=== PATIENT | male | born 1960 | race Caucasian/White ===

== ENCOUNTER 2017-02-21 08:57 | Day surgery (SDC) | payer MEDICARE ==
[~2017-02-21] VITALS: Ht 188 cm; Wt 93.0 kg
[~2017-02-21 08:57] MED LIST: AMLO10TA3 PO; ASPI-973 PO; ATEN25TA PO; ATOR20TA PO; BUPR1TAB36 SL; GLBR5T PO; HYDR4TAB PO; LISI40TA PO; Lactated Ringer's 1,000 ML IV ONE; METF-496 PO; PANT40TA3 PO; PROM25TA14 PO; TEST200V20 IM
[2017-02-21] MEDS ORDERED: Propofol 10,000 mCg/mL 20 mL Inj ONE (08:58)
[2017-02-21 09:33] VITALS: BP 141/88; PULSE 82; RESP 16; O2SAT 98
[2017-02-21] MEDS ORDERED: Lactated Ringer's 1,000 ML IV SCH (10:02)
[2017-02-21] MEDS ORDERED: Ondansetron 2 mg/mL 2 mL Inj IVPUSH PRN (10:05)
[2017-02-21] MEDS ORDERED: MetoCLOpramide 5 mg/mL 2 mL Inj IVPUSH PRN (10:05)
--- NOTE | 2017-02-21 10:06 | PCM.HPANE ---
Patient Data Date of Service: Feb 21, 2017 Surgeon Admitting Provider: Attending Provider:Francisco Stark MD Primary Care Physician:Adwoa Mathis Other Provider:Rossana Durham Anesthesia Reason for Visit GERD Ht/WT & BMI Height (Feet): 6 Height (Inches): 2 Weight (Kilograms): 93 Body Mass Index 26.00 Allergies Coded Allergies: colestipol (Verified Adverse Reaction, Mild, upset stomach, 02/21/17) Past Anesthesia History Anesthesia History: Denies:: Anesthesia Reactions, Fam Anesthesia Reaction, Fam Malignant Hypertherm, Malignant Hyperthermia Diabetes History Hx Diabetes?: Yes Type of Diabetes: Type II Glycemic Control: Oral Medication Current Bedside Blood Glucose: 146 MRSA MRSA: No Medications Blood Thinner: Aspirin Hypertension Medication: Yes Home Meds Incl Beta Gisele: Yes Date Beta Gisele Taken: Feb 20, 2017 Time Beta Gisele Taken: 0800 Reported Medications Testosterone Cypionate 200 Mg/1 Ml Vsts001 Mg IM 02/20/17 Promethazine 25 Mg Uyrmxp18 Mg PO Q6H PRN For Nausea Ref 0 02/20/[address] 40 Mg Tablet.dr40 Mg PO DAILY Ref 0 02/20/17 Metformin ER 1,000 Mg Tablet1,000 Mg PO DAILY Ref 0 02/20/17 Lisinopril 40 Mg Fxeffn36 Mg PO DAILY 30 Days Ref 0 02/20/17 Hydromorphone 4 Mg Tablet4 Mg PO Q4H PRN Pain Ref 0 02/20/17 Glyburide 5 Mg Tab5 Mg PO BIDAC 30 Days Ref 0 02/20/17 Buprenorphine/Naloxone 8-2 mg 1 Each Tab.subl1 Tablet SL DAILY Ref 0 02/20/17 Atorvastatin (Lipitor)20 Mg Srpoaj91 Mg PO DAILY Ref 0 02/20/17 Atenolol 25 Mg Ynhlul78 Mg PO DAILY #30 TABLET Ref 0 02/20/17 Aspirin 81 Mg Bgnuhf93 Mg PO DAILY Ref 0 02/20/17 Amlodipine 10 Mg Xsftes70 Mg PO DAILY Ref 0 02/20/17 History History of ENT Problems?: No HEENT History: Denies:: Abnormal Airway Cataracts Difficult Intubation Dysphagia Glaucoma Hearing Problem Sinus Problem TMJ Denture Type: None Teeth Condition: Within Normal Limits Hx of Heart Problems?: Yes Cardiovascular History: Positive for:: Hypertension Denies:: AICD Pacemaker Valvular Heart Disease Hx of Respiratory Problem?: No Respiratory History: Denies:: Asthma COPD Chest Surgery Cough Dyspnea Emphysema Hemoptysis Oxygen Administration Pneumonia Pulmonary Embolism Tuberculosis Use of C-PAP Machine Use of Inhalers / NEBS Hx Neurologic Problems?: No Neurological History: Denies:: CVA Hx of GI Problems?: No Hx of Problems?: No Hx Musculoskeletal Problems?: No Hx of Psycho/Social Problems?: No Hx Surgeries?: Yes (lower back, mid back- spinal stimulators placed, ) Hx Diabetes: YesBedside Blood Glucose: 146 Hx Alcohol Use: No Smoking Status: Current Every Day Smoker Light Tobacco Smoker Have You Smoked inLast 12 mo: Yes Stop/Bang Treated for Sleep Apnea?: No Do You Have a CPAP Machine?: No S-Snoring: Do You Snore Loudly: Yes T-Tired: feel tired, fatigued: Yes O-Obsered: Observed not breath: Yes P-Blood Pressure: treated: Yes B- Body Mass Index > 35 kg/m2: Yes A- Age over 50: Yes N- Neck Large Circumference: No G- Gender Male: Yes CESAR Total Score: 7 CESAR Risk Assessment: High Risk, =/>3 Yes CESAR Category 2: Yes Risk Assessment Category Category 1A: Patient has history of documented sleep apnea, and HAS NOT received any narcotic, sedative or anesthesia administration during this stay. Category 1B: Patient has history of documented sleep apnea, and HAS received any narcotic , sedative or anesthesia administration during this stay Category 2: Patient has SUSPECTED Obstructive Sleep Apnea, and HAS received any narcotic , sedative or anesthesia administration during this stay. Category 3: Patient has SUSPECTED Obstructive Sleep Apnea and HAS NOT received narcotic, sedative or anesthesia administration during this stay. Category 4: Outpatient in Procedural Areas with known sleep apnea or who screen positive for High Risk via the STOP/BANG questionnaire. Exam Exam Vital Signs Vital Signs Date Time Temp Pulse Resp B/P Pulse Ox O2 Delivery O2 Flow Rate FiO2 02/21/17 09:33 36.8 82 16 141/88 98 Room Air General Appearance: Alert, Oriented X3, Cooperative, No Acute Distress HEENT/AIRWAY: MP 2 Lungs: Clear to Auscultation Heart: Exam Unremarkable, Regular Rate/Rhythm, Normal S1, Normal S2, No Murmurs /Rubs/Gallops Meds/Labs/Diagnostics Admission Meds Current Medications Lactated Ringer's (Lr) 1,000 ml @ 10 mls/hr Q24H ONCE IV Last administered on 02/21/17t 09:47; Start 02/21/17 at 06:00; Stop 02/22/17 at 05:59 Bedside Blood Glucose: 146 Plan Impression Patient chart reviewed, patient interviewed and anesthestic plan with risks, benefits, and alternatives discussed, and informed consent obtained. ASA Physical Status: ASA2 Mod Systemic Disease Anesthetic Plan: GA, TIVA Bene/Risks/Altern/Consents: Yes HP Complete Prior to Induction: Yes Helder Hamilton MD Feb 21, 2017 10:06
[2017-02-21 10:33] VITALS: BP 125/82; PULSE 71; RESP 14; O2SAT 96
[2017-02-21 10:43] VITALS: BP 126/82; PULSE 80; RESP 16; O2SAT 98
[2017-02-21 10:49] VITALS: BP 148/88; PULSE 73; RESP 14; O2SAT 98
--- NOTE | 2017-02-21 10:56 | ENDO ---
[address] [address] ENDOSCOPY PROCEDURE PATIENT: JIL CARLSON : 1960 MR#: [id number] ADMIT: 02/21/2017 JOB ID: [id number] DATE OF SERVICE: 02/21/2017 PROCEDURE PERFORMED: Esophagogastroduodenoscopy. INDICATION: Patient with a history of chronic gastroesophageal reflux. ASA CLASSIFICATION, MALLAMPATI SCORE AND MEDICATIONS: The patient's ASA classification, Mallampati score and medications are as per Anesthesia note. INSTRUMENT USED: [id number]. PROCEDURE DETAILS: After informed consent was obtained, the patient was brought into the GI suite, where he was placed on oxygen via nasal cannula and monitored with continuous pulse oximeter, telemetry, and blood pressure monitoring. A time-out was performed. Then, he was placed in the left lateral decubitus position, and medications were administered for sedation. A bite block was placed. A standard EGD scope was inserted through the bite block and advanced under direct visualization to the second portion of the duodenum without difficulty. FINDINGS: 1. Normal appearing duodenal bulb, first and second portions. 2. Normal appearing pylorus. 3. Normal appearing antrum. 4. In the body of the stomach there were multiple polyps ranging in size from 5 mm to 7 mm. Polyp appearance was consistent with fundic gland polyps. The largest polyp was biopsied. 5. Retroflexed views in the gastric body revealed normal appearing cardia and fundus. There were a few polyps noted in the fundus as well, and appearance was also consistent with fundic gland polyps. 6. The GE junction was at 39 cm and appeared regular. Just above the GE junction, there was a small island of salmon-colored mucosa. Biopsy was obtained. 7. Remainder of the esophagus otherwise unremarkable. IMPRESSION: 1. Multiple gastric body polyps, appearance consistent with fundic gland polyps. 2. Island of salmon-colored mucosa above the gastroesophageal junction. RECOMMENDATIONS: 1. Await biopsy results. 2. Follow up in GI clinic. 3. Continue current medications. 4. Colonoscopy for colon cancer screening was recommended. COMPLICATIONS: None. ESTIMATED BLOOD LOSS: Less than 5 mL.
--- NOTE | 2017-02-21 11:20 | PCM.ANEP1 ---
Post Anesthesia Phase 1 PACU Phase 1 Assessment Date of Service: Feb 21, 2017 Vital Signs Vital Signs Date Time Temp Pulse Resp B/P Pulse Ox O2 Delivery O2 Flow Rate FiO2 02/21/17 10:49 73 14 148/88 98 Room Air 02/21/17 10:43 80 16 126/82 98 Room Air 02/21/17 10:33 36.8 71 14 125/82 96 Room Air 02/21/17 09:33 36.8 82 16 141/88 98 Room Air Anesthetic Administered: GA, TIVA Level of Alertness: Awake, talking MATHEWS's with Equal Strength: Yes Pain: No Nausea or Vomiting: No Cardiovascular Function and Hy: Yes Oxygen Delivery: Room Air Lungs: Clear to Auscultation Dermatome Level: Full Sensation Complications: No Follow up Care: No Helder Hamilton MD Feb 21, 2017 11:20
--- NOTE | 2017-02-22 14:06 | PATH ---
SURGICAL PATHOLOGY Attending Physician:Mary Ann Walters CASE STATUS: Signed Out PATIENT NAME: JIL CARLSON PID: [id number] : 1960 DATE COLLECTED:02/21/2017 16:29 SPECIMEN: 1: Stomach, Polyp, Biopsy 2: Esophagus, Biopsy CLINICAL HISTORY: 1. GASTRIC BODY POLYP 2. DISTAL ESOPHAGUS FINAL DIAGNOSIS: 1.GASTRIC BODY POLYP: FUNDIC GLAND POLYP, NEGATIVE FOR ATYPIA. Negative for evidence of Helicobacter. Negative for intestinal metaplasia. 2. DISTAL ESOPHAGUS BIOPSY: SQUAMOUS MUCOSA AND GASTRIC CARDIA-TYPE MUCOSA POSITIVE FOR SPECIALIZED METAPLASIA OF PARSONS' S-TYPE ESOPHAGUS. Negative for dysplasia and malignancy. Negative for squamous intraepithelial eosinophils. Part [address] Kassandra Jack who agrees with the diagnosis. ICD10 code K22.70 GROSS DESCRIPTION: The specimen is received in two formalin filled containers labeled with the patient's name. 1). The specimen is sublabeled "gastric body polyp" and consists of a 0.3 x 0.3 x 0.2 CM portion of tissue which is entirely submitted in cassette 1A. 2). The specimen is sublabeled "distal esophagus" and consists of a 0.2 x 0.2 x 0.1 CM portion of tissue which is entirely submitted in cassette 2A. 02/21/2017 DAC MICRO DESCRIPTION: See diagnosis. ICD-9 CODES: CPT CODES: 1: 24626 2: 43631 Electronically Signed Out Ronnie Riddle MD Formerly [facility] [address], [place] [address] Technical component performed at [facility], [facility] [address], [place], [address]
== END 2017-02-21 23:59 | disposition home or self-care (01) ==
LOC: END 08:57
PROVIDERS: ATTEND Internal Medicine Gastroenterology
DX: K22.70 Barrett's esophagus without dysplasia (principal); K31.7 Polyp of stomach and duodenum; K21.9 Gastro-esophageal reflux disease without esophagitis; G47.30 Sleep apnea, unspecified; E11.65 Type 2 diabetes mellitus with hyperglycemia; M54.16 Radiculopathy, lumbar region; E78.5 Hyperlipidemia, unspecified; I10 Essential (primary) hypertension; Z79.82 Long term (current) use of aspirin; Z79.84 Long term (current) use of oral hypoglycemic drugs
CPT/HCPCS: 43239; J7120